=== PATIENT | female | born 1970 | race African-American/Black ===

== ENCOUNTER 2018-04-21 12:48 | Emergency (ER) | payer BC, OTHER ==
[~2018-04-21] VITALS: Ht 167.6 cm; Wt 59.0 kg
[2018-04-21] MEDS ORDERED: SODIUM CHLORIDE 0.9% 1,000 ML IV ONE (13:09)
[2018-04-21] MEDS ORDERED: ONDANSETRON HCL 4MG/2ML VIAL IV STA (13:09)
[2018-04-21] MEDS ORDERED: MECLIZINE 25MG TABLET PO ONE (13:15)
[2018-04-21 14:41] LABS: CHLORIDE 105 mEq/L (98-107)
[2018-04-21 14:44] LABS: BASOPHILS % 0.1 % (0.0-2.0); HEMATOCRIT. 42.5 % (36.0-48.0); HEMOGLOBIN. 14.5 g/dL (12.0-16.0); LYMPHOCYTES % 32.4 % (20.0-50.0); MEAN CORPUSCULAR HEMOGLOBIN 30.2 pg (28.0-32.0); MEAN CORPUSCULAR VOLUME 88.3 fL (81.0-99.0); MEAN PLATELET VOLUME 8.4 fl (7.4-10.4); MONOCYTES % 8.2 % (2.0-8.0); NEUTROPHILS % 58.3 % (40.0-76.0); PLATELET 216 x1000/uL (130-400); RED BLOOD CELL COUNT 4.82 mill/uL (4.2-5.4); RED CELL DISTRIBUTION WIDTH 14.2 % (11.6-14.6)
[2018-04-21 14:47] LABS: ETHANOL BLOOD < 10 mg/dL
[2018-04-21 14:51] LABS: CREATINE KINASE 128 IU/L (26-192)
[2018-04-21 14:52] LABS: INR 1.2; PARTIAL THROMBOPLASTIN TIME 26.1 sec (23.4-31.0); PROTHROMBIN TIME 11.8 sec (9.1-11.1)
[2018-04-21 15:04] LABS: HCG SCREEN NEGATIVE
[2018-04-21 16:13] LABS: CLARITY URINE CLOUDY (CLEAR); COLOR URINE YELLOW (YELLOW); KETONES URINE 1+ (NEGATIVE); LEUKOCYTE ESTERASE URINE TRACE (NEGATIVE); NITRITE URINE POSITIVE (NEGATIVE); OCCULT BLOOD URINE NEGATIVE (NEGATIVE); PH URINE 6.5 (4.5-8.0); PROTEIN URINE NEGATIVE (NEGATIVE); SPECIFIC GRAVITY URINE 1.025 (1.005-1.030)
[2018-04-21 17:00] LABS: *AMPHETAMINES SCREEN URINE NEGATIVE (NEGATIVE); *BARBITURATES SCREEN URINE NEGATIVE (NEGATIVE); *BENZODIAZEPINES SCREEN URINE NEGATIVE (NEGATIVE); METHADONE URINE SCREEN NEGATIVE (NEGATIVE)
[2018-04-21 17:01] LABS: PHENCYCLIDINE URINE SCREEN NEGATIVE (NEGATIVE)
[2018-04-21 17:09] LABS: *COCAINE SCREEN URINE NEGATIVE (NEGATIVE)
[2018-04-21 17:10] VITALS: BP 97/58
[2018-04-21 17:11] LABS: CANNABINOID URINE SCREEN PRESUMTIVE POSITIVE (NEGATIVE); OPIATES URINE SCREEN PRESUMTIVE POSITIVE (NEGATIVE)
== END 2018-04-21 17:15 | disposition home or self-care (01) ==
LOC: ER 12:48
DX: S01.81XD Laceration without foreign body of other part of head, subsequent encounter (principal); R42 Dizziness and giddiness; R06.4 Hyperventilation; N39.0 Urinary tract infection, site not specified; R06.02 Shortness of breath; R20.2 Paresthesia of skin; F17.200 Nicotine dependence, unspecified, uncomplicated; W19.XXXD Unspecified fall, subsequent encounter
CPT/HCPCS: 36415; 80053; 80305; 81003; 82550; 83880; 84443; 84484; 84703; 85025; 85610; 85730; 93005; 96361; 96374; 99285; G0482; J2405; J7030; J8597

== ENCOUNTER → 2018-07-07 | Outpatient (CLI) | payer BC | END | disposition home or self-care (01) | LOC: MRI 07:40 | PROVIDERS: ATTEND Psychiatry & Neurology Neurology | DX: E07.81 Sick-euthyroid syndrome (principal); R42 Dizziness and giddiness; F07.81 Postconcussional syndrome | CPT/HCPCS: 70551 ==